=== PATIENT | female | born 1940 | race Caucasian/White ===

== ENCOUNTER 2017-10-01 10:32 | Day surgery (SDC) | payer MEDICARE, BC ==
[~2017-10-01 10:32] MED LIST: Buffered Lidocaine 0.9% SYRIN* 5 ML/SYR SYRINGE INTRADERM ONE; Bupivacaine 0.5% SDV PF* 30ML VIAL ONE; Lidocaine 1%* 5 ML VIAL ONE
[2017-10-01] MEDS ORDERED: Buffered Lidocaine 0.9% SYRIN* 5 ML/SYR SYRINGE ONE (10:42)
[2017-10-01] MEDS ORDERED: ceFAZolin 2 GM PREMIX (*) 2 GM/50 ML BAG IVPB ONE (10:42)
[2017-10-01] MEDS ORDERED: Midazolam* 1 MG/ML 5 ML VIAL (5 MG) ONE (12:33)
[2017-10-01] MEDS ORDERED: fentaNYL* 50 MCG/ML 2 ML VIAL (100 MCG VIAL) ONE (13:10)
[2017-10-01] MEDS ORDERED: Ibuprofen TAB* 400 MG PO PRN (14:26)
[2017-10-01] MEDS ORDERED: fentaNYL* 50 MCG/ML 2 ML VIAL (100 MCG VIAL) IV PRN (14:26)
[2017-10-01] MEDS ORDERED: Ondansetron INJ* 2 MG/ML VIAL IV PRN (14:26)
[2017-10-01] MEDS ORDERED: Naloxone* 0.4 MG/ML 1 ML VIAL IV PRN (14:26)
[2017-10-01] MEDS ORDERED: Ondansetron ODT TAB* 4 MG PO PRN (14:26)
[2017-10-01] MEDS ORDERED: HYDROcodone/ACETAMIN 5-325 MG* 1 TAB PO PRN (14:26)
[2017-10-01] MEDS ORDERED: Acetaminophen TAB* 325 MG PO PRN (14:26)
[2017-10-01 14:31] VITALS: BP 149/62
--- NOTE | 2017-10-01 23:03 | OP ---
ADDENDUM NOW INCLUDED ON THIS REPORT DATE OF OPERATION: 10/01/17 - [facility] DATE OF : 36 SURGEON: Elza Hernandez MD DATA CONTROL ASSISTANT: Not applicable. ANESTHESIOLOGIST: Woo Salmeron MD ANESTHESIA: Local MAC. PRE-OP DIAGNOSIS: Failed laminectomy syndrome. POST-OP DIAGNOSIS: Failed laminectomy syndrome. OPERATIVE PROCEDURE: Dual lead spinal cord stimulator trial. ESTIMATED BLOOD LOSS: Minimal. FLUIDS: Per Anesthesia record. HARDWARE: Nevro. The risks and benefits of the procedure were reviewed with the patient. The risks included but not limited to fever, chills, infections, bleeding, bruising , nerve injury, headache, and failure of device were discussed with the patient , who verbalized understanding and elected proceed. The patient denies any recent fever, chills, malaise, or constitutional symptoms and contraindications. She denies use of anticoagulants or history of coagulopathies. Her back was marked and she was subsequently taken to the operating room by Anesthesia. DESCRIPTION OF PROCEDURE: The patient was seen and examined. Medical records were reviewed. The patient was informed of the risks, benefits, and alternatives to the procedure. Risks discussed included but were not limited to bleeding, infection, nerve damage or spinal headaches. The patient indicates understanding, all questions were answered, and consent obtained. The patient was then brought to the procedure room and placed in the prone position with arms to the side, making sure no pressure points were left unattended. Pressure points were checked and padded. Proceduralist was in continuous attendance. The area was then prepped and draped in the usual sterile manner, strict sterile technique was used. Final verification ("time out ") was performed to ensure the correct patient identity, site and agreement on the procedure to be done. The T12-L1 space was identified and confirmed with fluoroscopy. A left paramedian approach was used. mL of plain lidocaine 1% were used for local anesthesia of the skin. A 14-Gauge 3.5 inch epidural Tuohy needle was inserted through the skin at the level one vertebral body below the aforementioned targeted interspace. The needle was advanced under fluoroscopy in a low transverse approach. The epidural space was identified and confirmed by fluoroscopy and easy thread of the SCS lead was performed. There was minimal change of resistance felt with the ELI syringe when trying to identify the epidural space, so the lead was used to confirm entry into the epidural space. The SCS single lead was easily threaded all the way up to superior endplate of the vertebral body and tested by our promotions representative. The steering and maneuvering of the lead was relatively easy and uneventful without significant issue and care was taken to keep the lead just left of midline with the tip aiming slightly to the left. The initial placement of the lead provided stimulation coverage that was adequate for the patient's pain. We then directed our attention to the right sided lead using the same method as summarized above. At this point, the Tuohy needles were cautiously removed verifying under fluoroscopy there was no migration of the lead. The leads were secured with Steri-Strips and Tegaderm in a sterile fashion. The device was taped and secured to the patient's . The patient tolerated the procedure well and was taken to our post-procedure care unit for further recovery and assessment of stimulation coverage modifications were made by the promotions representative. The patient will return for follow up and lead pull in one week. Orders for thoracic spine 2- view x-rays have been ordered for today. All fluoroscopic images were saved. ADDENDUM: The left lead was advanced with ease up to the top of the T8 vertebral body and the right lead was advanced with ease to the top of the T9 vertebral body and the T8-T9 intervertebral space. The patient tolerated the procedure well with no focal neurologic deficits or paresthesias. Each lead was anchored with Nevro anchors and sutured with 2-0 Prolene sutures and secured with 2-0 silk ties. This site was then dressed with Steri-Strips, Maxitrol, and Tegaderm and the patient was brought to the recovery room. [id number] #: [id number] Melissa- [id number]/CPS #: [id number] ROMULO
--- NOTE | 2017-10-01 23:12 | PM ---
OPERATIVE NOTE: DATE OF SERVICE: 10/01/17 ADDENDUM: The left lead was advanced with ease up to the top of the T8 vertebral body and the right lead was advanced with ease to the top of the T9 vertebral body and the T8-T9 intervertebral space. The patient tolerated the procedure well with no focal neurologic deficits or paresthesias. Each lead was anchored with Nevro anchors and sutured with 2-0 Prolene sutures and secured with 2-0 silk ties. This site was then dressed with Steri-Strips, Maxitrol, and Tegaderm and the patient was brought to the recovery room. [id number]/CPS #: [id number] MTDKatherin
--- NOTE | 2017-10-04 10:21 | RAD ---
CPT II Codes: G9500 INDICATION: Neurostimulator lead placement Fluoroscopic services provided for referring physician. 3 minutes and 1 seconds of fluoroscopy time was used. 8 spot images demonstrates placement of neurostimulator leads in the epidural space. IMPRESSION: Fluoroscopic services provided for referring physician for neurostimulator lead placement.
== END 2017-10-01 15:08 | disposition home or self-care (01) ==
LOC: OR 10:32
PROVIDERS: ATTEND Anesthesiology Pain Medicine
DX: M96.1 Postlaminectomy syndrome, not elsewhere classified (principal); M54.16 Radiculopathy, lumbar region; Z86.12 Personal history of poliomyelitis; I11.9 Hypertensive heart disease without heart failure; M81.0 Age-related osteoporosis without current pathological fracture; E78.00 Pure hypercholesterolemia, unspecified; F32.9 Major depressive disorder, single episode, unspecified; K21.9 Gastro-esophageal reflux disease without esophagitis; E03.9 Hypothyroidism, unspecified; E55.9 Vitamin D deficiency, unspecified; K59.00 Constipation, unspecified
CPT/HCPCS: 76001; 77003; C1897; J0690; J2250; J3010

== ENCOUNTER 2018-12-15 15:39 | Emergency (ER) | payer MEDICARE, BC ==
--- NOTE | 2018-12-15 15:55 | ED ---
Complex/Multi-Sys Presentation - HPI Summary HPI Summary: 78 year old F referred to [facility] by her oncologist for hyponatremia from blood tests done yesterday by her oncologist. Patient denies vomiting, diarrhea, dysuria, acute pain. The patient rates the pain 0/10 in severity. Symptoms aggravated by nothing. Symptoms alleviated by nothing. Patient states she has been drinking fluids. Patient has breast CA. Patient states she started chemotherapy on 08/03/18. Patient states she had lumpectomy of malignant tumor on her breast. Medications reviewed. Allergies noted. - History Of Current Complaint Chief Complaint: EDGeneral Time Seen by Provider: 12/15/18 15:47 Hx Obtained From: Patient Onset/Duration: Lasting Days - 1, Still Present Timing: Constant Severity Currently: None Aggravating Factor(s): Nothing Alleviating Factor(s): Nothing - Allergies/Home Medications Allergies/Adverse Reactions: Allergies Allergy/AdvReac Type Severity Reaction Status Date / Time No Known Allergies Allergy Verified 12/15/18 15:42 Home Medications: Home Medications Ca/D3/Mag Ox/Zinc/Staff Midwife/Morro/Bor [Calcium 600+D3 Plus [place] 600-800 mg-Unit] 1 chw PO DAILY 12/15/18 [History Confirmed 12/15/18] Cholecalciferol TAB* [Vitamin D TAB*] 1,000 unit PO DAILY 12/15/18 [History Confirmed 12/15/18] Denosumab [Prolia] 60 mg SUBCUT Q6M 12/15/18 [History Confirmed 12/15/18] Diclofenac Sodium EC TAB* [Voltaren EC TAB*] 75 mg PO DAILY 12/15/18 [History Confirmed 12/15/18] Diltiazem CD CAP* [Cardizem CD CAP*] 180 mg PO QAM 12/15/18 [History Confirmed 12/15/18] Fluticasone NASAL SPRAY 50MCG* [Flonase NASAL SPRAY 50MCG*] 1 spray BOTH NARES DAILY PRN 12/15/18 [History Confirmed 12/15/18] Levothyroxine TAB* [Synthroid TAB*] 75 mcg PO DAILY 12/15/18 [History Confirmed 12/15/18] Metoprolol Succinate XL TAB* [Toprol XL TAB*] 50 mg PO DAILY 12/15/18 [History Confirmed 12/15/18] Multivitamins/Minerals TAB* [Theragran/minerals TAB*] 1 tab PO DAILY 12/15/18 [ History Confirmed 12/15/18] Olmesartan (NF) [Benicar (NF)] 40 mg PO DAILY 12/15/18 [History Confirmed ] Tamoxifen TAB* [Nolvadex*] 20 mg PO DAILY 12/15/18 [History Confirmed 12/15/18] Trastuzumab* [Herceptin*] 150 mg IV Q21D 12/15/18 [History Confirmed 12/15/18] amLODIPine TAB* [Norvasc 5 mg TAB*] 2.5 mg PO DAILY 12/15/18 [History Confirmed 12/15/18] PMH/Surg Hx/FS Hx/Imm Hx Endocrine/Hematology History: Reports: Hx Thyroid Disease - Hypothyroid Denies: Hx Diabetes Cardiovascular History: Reports: Hx Hypercholesterolemia, Hx Hypertension - CONTROLLED WITH MEDS, Other Cardiovascular Problems/Disorders - "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 Denies: Hx Pacemaker/ICD Respiratory History: Reports: Hx Sleep Apnea Denies: Other Respiratory Problems/Disorders GI History: Reports: Hx Gastroesophageal Reflux Disease - on medication as needed Denies: Other GI Disorders History: Denies: Hx Renal Disease, Other Problems/Disorders Musculoskeletal History: Reports: Hx Arthritis - Hips, neck and back- Osteoarthritis, Hx Back Problems, Hx Osteoporosis, Hx Scoliosis, Other Musculoskeletal History - Hx of Polio, Scoliosis, Osteoporosis Sensory History: Reports: Hx Contacts or Glasses - Glasses Denies: Hx Hearing Aid Opthamlomology History: Reports: Hx Contacts or Glasses - Glasses Neurological History: Reports: Other Neuro Impairments/Disorders - Polio age 13 , nerve and muscle damage Psychiatric History: Reports: Hx Anxiety - during husbands illness and , broken heart syndrome Denies: Hx Panic Disorder - Cancer History Hx Chemotherapy: No Hx Radiation Therapy: No - Surgical History Surgery Procedure, Year, and Place: lumpectomy of malignant tumor on her breast. spinal surgery Apr 2018. RIGHT HIP REPLACEMENT 2014. L3-L4-L5 FUSION WITH TITANIUM SPACERS 2010. RIGHT KNEE REPLACEMENT 2013. Left shoulder replacement, 2017, [place]. Vein stripping in right leg x2 1965 & 1979's Hx Anesthesia Reactions: No Infectious Disease History: No Infectious Disease History: Denies: Traveled Outside the [place] in Last 30 Days - Family History Known Family History: Positive: Other - breast CA - Social History Alcohol Use: Occasionally Alcohol Amount: 1 glass of wine Hx Substance Use: No Substance Use Type: Reports: None Hx Tobacco Use: Yes Smoking Status (MU): Former Smoker Type: Cigarettes Have You Smoked in the Last Year: No Review of Systems Positive: Other - hyponatremia Negative: Vomiting, Diarrhea Negative: dysuria All Other Systems Reviewed And Are Negative: Yes Physical Exam - Summary Physical Exam Summary: Constitutional: Well-developed, Well-nourished, Alert. (-) Distressed Skin: Warm, Dry HENT: Normocephalic; Atraumatic Eyes: Conjunctiva normal Neck: Musculoskeletal ROM normal neck. (-) JVD, (-) Stridor, (-) Tracheal deviation Cardio: Rhythm regular, rate normal, Heart sounds normal; Intact distal pulses; The pedal pulses are 2+ and symmetric. Radial pulses are 2+ and symmetric. (-) Murmur Pulmonary/Chest wall: Effort normal. (-) Respiratory distress, (-) Wheezes, (-) Rales Abd: Soft, (-) tenderness, (-) Distension, (-) Guarding, (-) Rebound Musculoskeletal: (-) Edema Lymph: (-) Cervical adenopathy Neuro: Alert, Oriented x3 Psych: Mood and affect Normal Triage Information Reviewed: Yes Vital Signs On Initial Exam: Initial Vitals Temp Pulse Resp BP Pulse Ox 99.3 F 69 16 145/83 97 12/15/18 15:42 12/15/18 15:42 12/15/18 15:42 12/15/18 15:42 12/15/18 15:42 Vital Signs Reviewed: Yes Diagnostics - Vital Signs Vital Signs Temp Pulse Resp BP Pulse Ox 12/15/18 15:42 99.3 F 69 16 145/83 97 - Laboratory Result Diagrams: 12/15/18 16:15 12/15/18 18:45 Lab Statement: Any lab studies that have been ordered have been reviewed, and results considered in the medical decision making process. Re-Evaluation - Re-Evaluation First Eval Re-Evaluation Time: 17:19 Comment: Will give 1 L fluids then recheck Second Eval Re-Evaluation Time: 17:49 Comment: Patient updated on plan of care Complex Multi-Symp Course/Dx Course Of Treatment: Patient is here with asymptomatic hyponatremia. Patient has been borderline hypertension in the past with her low sodium per chart review of 129. Patient had a sodium of 124 here. Patient was given a liter of IV fluids with improvement to 127. Given patient's asymptomatic nature and great follow-up, patient felt comfortable being discharged. - Diagnoses Provider Diagnoses: Hyponatremia - Physician Notifications Discussed Care Of Patient With: Annika Velázquez Time Discussed With Above Provider: 17:16 Instructed by Provider To: Other - Dr. Velázquez, hospitalist, recommends giving 1 L fluids then rechecking on patient Discharge ED - Sign-Out/Discharge Documenting (check all that apply): Patient Departure - Discharge Patient Received Moderate/Deep Sedation with Procedure: No - Discharge Plan Condition: Stable Disposition: HOME Patient Education Materials: Hyponatremia (ED) Print Language: HEBREW Referrals: Coleen Lutz MD [Primary Care Provider] - Additional Instructions: Please have your primary care doctor and oncologist check your sodium within the next 1-3 days Please come back if you have worsening confusion, any concerning symptoms - Billing Disposition and Condition Condition: STABLE Disposition: Home - Attestation Statements Document Initiated by Jeanibe: Yes Documenting Scribe: Sarita Rendon Provider For Whom Laurence is Documenting (Include Credential): Roc Mohr MD Scribe Attestation: I, Sarita Rendon, scribed for Roc Mohr MD on 12/15/18 at 2122. Scribe Documentation Reviewed: Yes Provider Attestation: The documentation as recorded by the Sarita avitia accurately reflects the service I personally performed and the decisions made by me, Roc Mohr MD Status of Scribe Document: Viewed
[2018-12-15 16:26] LABS: ABS Lymphocytes 1.6 10^3/ul (1.0-4.8); ABS Monocytes 1.1 10^3/ul (0-0.8); ABS Neutrophils 7.9 10^3/ul (1.5-7.7); Eosinophil % 0.2 %; Hematocrit 30 % (35-47); Hemoglobin 10.1 g/dL (12.0-16.0); Lymphocyte % 14.7 %; Mean Corpuscular HGB Conc 34 g/dL (31-36); Mean Corpuscular Hemoglobin 30 pg (27-31); Mean Corpuscular Volume 89 fL (80-97); Mean Platelet Volume 7.3 fL (7.4-10.4); Platelet Count 237 10^3/uL (150-450); Red Blood Count 3.32 10^6 /uL (3.70-4.87); Red Cell Distribution Width 13 % (10-15); White Blood Count 10.7 10^3/uL (3.5-10.8)
[2018-12-15 16:43] LABS: Albumin 3.8 g/dL (3.2-5.2); Albumin/Globulin Ratio 1.7 (1-3); BUN/Creatinine Ratio 37.3 (8-20); Calcium 8.4 mg/dL (8.6-10.3); EGFR Non-African American 74.4 (>60); Globulin 2.2 g/dL (2-4); Potassium 4.9 mmol/L (3.5-5.0); Total Bilirubin 0.2 mg/dL (0.2-1.0)
[2018-12-15] MEDS ORDERED: NS 0.9% 1000 ML** 1,000 ML IV ONE (17:19)
[2018-12-15 17:56] LABS: Urine Appearance Cloudy; Urine Bacteria Absent (Absent); Urine Bilirubin Negative (Negative); Urine Blood Negative (Negative); Urine Color Yellow; Urine Glucose Negative (Negative); Urine Ketones Negative (Negative); Urine Nitrite Negative (Negative); Urine Protein Negative (Negative); Urine Red Blood Cell Absent (Absent); Urine Specific Gravity 1.006 (1.010-1.030); Urine Squamous Epithelial Cell Present (Absent); Urine Urobilinogen Negative (Negative); Urine White Blood Cell 1+(6-10/hpf) (Absent)
[2018-12-15 20:04] VITALS: BP 144/64
--- NOTE | 2018-12-18 17:50 | PN ---
Progress Note - Progress Note Date of Service: 12/15/18 Note: Pt called on 12/18/18 to make aware of UTI results Patient was not placed on meds prior to discharge Left message and sent prescription for Keflex 500mg TID x 5 days to RX Will try to call again tomorrow - if no answer - will send letter
--- NOTE | 2018-12-19 06:21 | PN ---
Progress Note - Progress Note Date of Service: 12/19/18 Note: keflex was sent to pharmacy yesterday. patient was unable to be reached. spoke with patient today that received message.
== END 2018-12-15 20:03 | disposition home or self-care (01) ==
LOC: ED 15:39
DX: E87.1 Hypo-osmolality and hyponatremia (principal); C50.919 Malignant neoplasm of unspecified site of unspecified female breast; E03.9 Hypothyroidism, unspecified; E78.00 Pure hypercholesterolemia, unspecified; I10 Essential (primary) hypertension; K21.9 Gastro-esophageal reflux disease without esophagitis; Z87.891 Personal history of nicotine dependence; Z79.82 Long term (current) use of aspirin; Z79.899 Other long term (current) drug therapy; Z96.641 Presence of right artificial hip joint; Z96.651 Presence of right artificial knee joint; Z96.612 Presence of left artificial shoulder joint
CPT/HCPCS: 36415; 80053; 81003; 81015; 83735; 84300; 85025; 87077; 87086; 87186; 96360; 96361; 99282